=== PATIENT | male | born 1975 | race Caucasian/White ===

== ENCOUNTER → 2016-12-03 | Outpatient (CLI) | payer OTHER ==
--- NOTE | 2016-12-03 08:11 | CT ---
EXAMINATION TYPE: CT brain wo/w con DATE OF EXAM: 12/03/2016 COMPARISON: NONE HISTORY: headache/blackouts when he coughs. hx stroke x 2 CT DLP: 2232.00 mGycm, Automated exposure control for dose reduction was used. CONTRAST: Patient injected with 100 mL of Omnipaque 300. CT of the brain is performed utilizing 3 mm thick sections through the posterior fossa and 3 mm thick sections through the remaining calvarium. Study is performed within 24 hours of arrival to the hospital. No abnormal hyperdensity is present to suggest an acute intracranial hemorrhage. No mass lesion is evident. No acute infarcts are evident. Ventricles and sulci are appropriate for the patient age. Postcontrast imaging is performed. No suspicious enhancement is evident. There is a retention cyst within the left maxillary sinus. Remaining paranasal sinuses are clear. Mas toid air cells are clear. IMPRESSIONS: 1. Normal CT brain.
== END | disposition home or self-care (01) ==
LOC: RADCTMAIN 07:01
PROVIDERS: ATTEND Family Medicine
DX: R51 Headache (principal); R42 Dizziness and giddiness
CPT/HCPCS: 70470; Q9967

== ENCOUNTER → 2017-03-16 | Outpatient (CLI) | payer OTHER ==
--- NOTE | 2017-03-16 10:19 | CT ---
EXAMINATION TYPE: CT abdomen w con DATE OF EXAM: 03/16/2017 COMPARISON: Complete abdominal ultrasound January 04, 2017. HISTORY: Abnormal findings of blood chemistry per order. Liver and back pain per patient. CT DLP: 1229 mGycm, Automated Exposure Control for Dose Reduction was Utilized. CONTRAST: CT scan of the abdomen is performed with oral and with IV Contrast, patient injected with 100 mL of O mnipaque 300. FINDINGS: LUNG BASES: No significant abnormality is appreciated. LIVER/GB: Cholecystectomy clips are redemonstrated. Liver is noted normal in size. Liver is overall h ypodense relative to spleen this correlates with fatty infiltration on ultrasound. PANCREAS: No significant abnormality is seen. SPLEEN: No significant abnormality is seen. ADRENALS: No significant abnormality is seen. KIDNEYS: No significant abnormality is seen. BOWEL: No significant abnormality is seen. LYMPH NODES: No greater than 1cm abdominal lymph nodes are appreciated. OSSEOUS STRUCTURES: There is disc space narrowing at lumbosacral junction. Posterior disc herniation effaces anterior thecal sac at this level. 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 IMPRESSION: Fatty infiltration of liver noted seen better on recent ultrasound. Degenerative change l umbosacral junction noted.
== END | disposition home or self-care (01) ==
LOC: RADCTMAIN 08:44
PROVIDERS: ATTEND Family Medicine
DX: K76.0 Fatty (change of) liver, not elsewhere classified (principal)
CPT/HCPCS: 74160; Q9967